=== PATIENT | male | born 1950 | race Caucasian/White ===

== ENCOUNTER 2020-07-11 12:21 | Emergency (ER) | payer MEDICARE, MEDICAID ==
[~2020-07-11] VITALS: Ht 175.3 cm; Wt 108.9 kg
[2020-07-11 12:21] VITALS: BP_SYST 127
[2020-07-11] MEDS ORDERED: ASPIRIN 81 MG TAB.CHEW PO ONE (12:45)
[2020-07-11] MEDS ORDERED: ASPIRIN 81 MG TAB.CHEW ONE (13:06)
[2020-07-11 13:07] LABS: BASOPHILS % (AUTO) 0.7 % (0.0-2.0); EOSINOPHILS # (AUTO) 0.1 K/uL (0.0-0.4); EOSINOPHILS % (AUTO) 2.3 % (0.0-4.0); HEMATOCRIT 42.8 % (36-54); HEMOGLOBIN 14.7 g/dL (14.0-18.0); LYMPHOCYTES # (AUTO) 1.5 K/uL (1.0-5.5); LYMPHOCYTES % (AUTO) 25.1 % (20.5-51.5); MEAN CORPUSCULAR HEMOGLOBIN 32 pg (27-31); MEAN CORPUSCULAR HGB CONC 34 % (32-36); MEAN CORPUSCULAR VOLUME 94 fL (79.0-98.0); MONOCYTES # (AUTO) 0.4 K/uL (0.0-1.0); MONOCYTES % (AUTO) 7.5 % (1.7-9.3); NEUTROPHILS # (AUTO) 3.8 K/uL (1.8-7.7); NEUTROPHILS % (AUTO) 64.4 % (40.0-70.0); PLATELET COUNT (AUTO) 154 K/uL (130-430); RED BLOOD CELL COUNT(AUTO) 4.55 MIL/uL (4.2-6.2); RED CELL DISTRIBUTION WIDTH 13.5 % (9.0-15.0)
[2020-07-11 13:20] LABS: ANION GAP 9 (5-15); CALCIUM 8.7 mg/dL (8.4-11.0); CHLORIDE 103 mmol/L (98-107); CREATININE 0.75 mg/dL (0.55-1.30); GLUCOSE 112 mg/dL (70-99); POTASSIUM 3.9 mmol/L (3.5-5.1); SODIUM SERUM 138 mmol/L (136-145); UREA NITROGEN, BLOOD 14 mg/dL (8-21)
[2020-07-11 13:25] LABS: ALANINE AMINOTRANSFERASE 24 U/L (12-78); ALBUMIN 3.9 g/dL (3.4-4.8); ASPARTATE AMINOTRANSFERASE 21 U/L (10-37); LIPASE 63 U/L (73-393); TOTAL BILIRUBIN 0.6 mg/dL (0.0-1.0)
[2020-07-11 16:57] VITALS: BP_SYST 127
== END 2020-07-11 16:57 | disposition short-term general hospital (02) ==
LOC: SED 12:21
DX: R07.9 Chest pain, unspecified (principal); I10 Essential (primary) hypertension
CPT/HCPCS: 36415; 71045; 80053; 82550-TC; 83690-TC; 83880; 84484; 85025; 93005; 99285